=== PATIENT | female | born 1950 | race Two or more races ===

== ENCOUNTER 2021-08-21 09:37 | Outpatient (CLI) | payer OTHER | END 2021-08-21 09:45 | disposition home or self-care (01) | LOC: RAD 09:37 | PROVIDERS: ATTEND Orthopaedic Surgery | DX: M25.562 Pain in left knee (principal) ==

== ENCOUNTER 2021-09-25 16:32 | Outpatient (CLI) | payer OTHER | END 2021-09-25 16:39 | disposition home or self-care (01) | LOC: LAB 16:32 | PROVIDERS: ATTEND Orthopaedic Surgery | DX: E83.42 Hypomagnesemia (principal); E56.1 Deficiency of vitamin K; E88.9 Metabolic disorder, unspecified; M81.8 Other osteoporosis without current pathological fracture ==